=== PATIENT | male | born 1965 | race African-American/Black ===

== ENCOUNTER 2017-02-28 16:08 | Inpatient (IN) | payer OTHER ==
[2017-02-28 16:39] VITALS: BMI 30.4
--- NOTE | 2017-02-28 20:13 | HP ---
CIWA Score - CIWA Score Nausea/Vomitin-No Nausea/No Vomiting Muscle Tremors: 4-Moderate,w/Arms Extend Anxiety: 4-Mod. Anxious/Guarded Agitation: 4-Moderately Restless Paroxysmal Sweats: No Perspiration Orientation: 2-Disoriented Date<2 days Tacttile Disturbances: 0-None Auditory Disturbances: 0-None Visual Disturbances: 0-None Headache: 2-Mild CIWA-Ar Total Score: 16 Admission ROS BHS - HPI Chief Complaint: SEEKING DETOX FOR ALCOHOLISM Allergies/Adverse Reactions: Allergies Allergy/AdvReac Type Severity Reaction Status Date / Time No Known Allergies Allergy Verified 06/02/13 16:47 History of Present Illness: 52 Y.O. MALE WITH ALCOHOLISM AND COCAINE DEP ADMITTED FOR DETOX. LAST DETOX 2 MONTHS AGO. SELF REFERRED. REPORTS LONGEST CLEAN TIME 3 MONTHS. Exam Limitations: No Limitations - Ebola screening Have you traveled outside of the country in the last 21 days: No Have you had contact with anyone from an Ebola affected area: No Have you been sick,other than usual withdrawal symptoms: No Do you have a fever: No - Review of Systems Constitutional: Changes in sleep EENT: reports: No Symptoms Reported Respiratory: reports: No Symptoms reported Cardiac: reports: No Symptoms Reported GI: reports: Abdominal cramping : reports: No Symptoms Reported Musculoskeletal: reports: No Symptoms Reported Integumentary: reports: No Symptoms Reported Neuro: reports: No Symptoms reported Endocrine: reports: No Symptoms Reported Hematology: reports: No Symptoms Reported Psychiatric: reports: Anxious Other Systems: Reviewed and Negative Patient History - Patient Medical History Hx Anemia: No Hx Asthma: Yes (on albuterol inhaler) Hx Chronic Obstructive Pulmonary Disease (COPD): No Hx Cancer: No Hx Cardiac Disorders: No Hx Congestive Heart Failure: No Hx Hypertension: No Hx Hypercholesterolemia: Yes Hx Pacemaker: No HX Cerebrovascular Accident: No Hx Seizures: No Hx Dementia: No Hx Diabetes: No Hx Gastrointestinal Disorders: No Hx Liver Disease: No Hx Genitourinary Disorders: No Hx Sexually Transmitted Disorders: No Hx Renal Disease (ESRD): No Hx Thyroid Disease: No Hx Human Immunodeficiency Virus (HIV): No Hx Hepatitis C: No Hx Depression: No Hx Suicide Attempt: No Hx Schizophrenia: No Other Medical History: DENIES - Patient Surgical History Past Surgical History: Yes Hx Neurologic Surgery: No Hx Cataract Extraction: No Hx Cardiac Surgery: No Hx Lung Surgery: No Hx Breast Surgery: No Hx Breast Biopsy: No Hx Abdominal Surgery: No Hx Appendectomy: No Hx Cholecystectomy: No Hx Genitourinary Surgery: No Hx Section: No Hx Orthopedic Surgery: Yes (BUNION REMOVAL L FOOT) Other Surgical History: removal of benign cyst of neck in 2019 Anesthesia Reaction: No - PPD History Previous Implant?: Yes Documented Results: Negative w/proof Implanted On Prior [facility] Admission?: Yes Date: 06/04/13 Results: 0MM PPD to be Administered?: Yes - Smoking Cessation Smoking history: Current every day smoker Have you smoked in the past 12 months: Yes Aproximately how many cigarettes per day: 10 Cigars Per Day: 0 Hx Chewing Tobacco Use: No Initiated information on smoking cessation: Yes 'Breaking Loose' booklet given: 02/28/17 - Substance & Tx. History Hx Alcohol Use: Yes Hx Substance Use: Yes Substance Use Type: Alcohol, Cocaine Hx Substance Use Treatment: Yes ([facility]) - Substances Abused BEER Route: Oral Frequency: Daily Amount used: 8- 16OZ CANS Age of first use: 19 Date of Last Use: 02/28/17 (5 CANS) COCAINE Route: Smoking Frequency: Daily Amount used: $30 Age of first use: 19 Date of Last Use: 02/27/17 Family Disease History - Family Disease History Family Disease History: [place]: Mother (UTERINE [place] ) Admission Physical Exam [facility] - Vital Signs Vital Signs: Vital Signs - 24 hr 02/28/17 16:26 Temperature 96.0 F L Pulse Rate 84 Respiratory 18 Rate Blood Pressure 145/85 - Physical General Appearance: Yes: Appropriately Dressed, Tremorous, Anxious HEENTM: Yes: EOMI, Normocephalic, DIONI, Pharynx Normal, Other (MISSING TEETH) Respiratory: Yes: Chest Non-Tender, Lungs Clear, Normal Breath Sounds, No Respiratory Distress, No Accessory Muscle Use Neck: Yes: No masses,lesions,Nodules, Supple, Trachea in good position Breast: Yes: Breast Exam Deferred Cardiology: Yes: Regular Rhythm, Regular Rate, S1, S2 Abdominal: Yes: Normal Bowel Sounds, Non Tender, Soft Genitourinary: Yes: Within Normal Limits Back: Yes: Normal Inspection Musculoskeletal: Yes: full range of Motion, Gait Steady Extremities: Yes: Normal Range of Motion, Non-Tender, Tremors Neurological: Yes: Alert, Disoriented (TO DATE) Integumentary: Yes: Normal Color, Dry, Warm Lymphatic: Yes: Within Normal Limits - Diagnostic (1) Hypercholesterolemia Current Visit: No Status: Active (2) Alcohol dependence with uncomplicated withdrawal Current Visit: Yes Status: Acute (3) Cocaine dependence, uncomplicated Current Visit: Yes Status: Acute (4) Asthma Current Visit: Yes Status: Acute (5) Nicotine dependence Current Visit: Yes Status: Acute Cleared for Admission [facility] - Detox or Rehab [facility] Level of Care: Medically Managed Detox Regimen/Protocol: Librium [facility] Breath Alcohol Content Breath Alcohol Content: 0 Urine Drug Screen - Results Drug Screen Negative: No Urine Drug Screen Results: TRE-Cocaine
[2017-02-28] MEDS ORDERED: MAGNESIUM CITRATE 300 ML BOTTLE PO PRN (20:21)
[2017-02-28] MEDS ORDERED: MENTHOL/PHENOL 1 EACH UD MM PRN (20:21)
[2017-02-28] MEDS ORDERED: NICOTINE POLACRILEX 2 MG GUM BUC PRN (20:21)
[2017-02-28] MEDS ORDERED: MAGNESIUM HYDROX 2400MG/30ML ORAL SUSPENSION 30 ML CUP PO PRN (20:21)
[2017-02-28] MEDS ORDERED: P-EPHED 60MG/TRIPROLIDI 2.5MG TABLET PO PRN (20:21)
[2017-02-28] MEDS ORDERED: MAG HYDROX/AL HYDROX/SIMETH 30 ML UNIT-DOSE CUP PO PRN (20:21)
[2017-02-28] MEDS ORDERED: diphenhydrAMINE HCL 50 MG CAPSULE PO PRN (20:21)
[2017-02-28] MEDS ORDERED: ACETAMINOPHEN 325 MG TABLET (FP) PO PRN (20:21)
[2017-02-28] MEDS ORDERED: hydrOXYzine PAMOATE 50 MG CAPSULE (FP) PO PRN (20:21)
[2017-02-28] MEDS ORDERED: guaiFENesin/D-METHORPHAN HB 10 ML UNIT-DOSE CUPS PO PRN (20:21)
[2017-02-28] MEDS ORDERED: LOPERAMIDE HCL 2 MG CAPSULE PO PRN (20:21)
[2017-02-28] MEDS ORDERED: chlordiazePOXIDE HCL 25 MG CAPSULE PO PRN (20:21)
[2017-02-28] MEDS: chlordiazePOXIDE HCL 25 MG CAPSULE PO SCH (22:38)
[2017-02-28] MEDS: ALBUTEROL SO4 6.7 GM HFA INHALER IH SCH (22:44)
[2017-02-28] MEDS: THIAMINE HCL 100 MG TABLET (FP) PO SCH (22:44)
[2017-02-28] MEDS: NICOTINE 14 MG/24 HOURS TOPICAL PATCH TD SCH (22:46)
[2017-03-01] LABS: URINE APPEARANCE CLEAR; URINE BILIRUBIN NEGATIVE (NEGATIVE); URINE BLOOD NEGATIVE (NEGATIVE); URINE COLOR LTYELLOW; URINE GLUCOSE (UA) NEGATIVE (NEGATIVE); URINE KETONE NEGATIVE (NEGATIVE); URINE LEUK ESTERASE NEGATIVE (NEGATIVE); URINE NITRITE NEGATIVE (NEGATIVE); URINE PROTEIN NEGATIVE (NEGATIVE); URINE UROBILINOGEN NEGATIVE E.U./dl (0.2-1.0)
[2017-03-01] MEDS: ALBUTEROL SO4 6.7 GM HFA INHALER IH SCH ×7 (01:00→22:32)
[2017-03-01] MEDS: chlordiazePOXIDE HCL 25 MG CAPSULE PO SCH ×4 (06:32→22:30)
--- NOTE | 2017-03-01 09:58 | EKG ---
Test Reason : Blood Pressure : / mmHG Vent. Rate : 077 BPM Atrial Rate : 077 BPM P-R Int : 132 ms QRS Dur : 074 ms QT Int : 370 ms P-R-T Axes : 057 050 042 degrees QTc Int : 418 ms NORMAL SINUS RHYTHM NORMAL ECG NO PREVIOUS ECGS AVAILABLE Confirmed by KEVEN BAINS MD ([id number]) on 03/01/2017 9:58:17 AM Referred By: Confirmed By:KEVEN BAINS MD
[2017-03-01 10:11] LABS: MCH 28.5 pg (25.7-33.7); MEAN CELL VOLUME 86.5 fl (80-96); MEAN PLT VOLUME 7.7 fl (7.5-11.1); PLATELET COUNT 280 K/MM3 (134-434); WHITE BLOOD COUNT 4.8 K/mm3 (4.0-10.0)
[2017-03-01] MEDS: PRENATAL VITAMINS W/ FOLIC ACID TABLET (FP) PO SCH (10:29)
[2017-03-01] MEDS: NICOTINE 14 MG/24 HOURS TOPICAL PATCH TD SCH (10:30)
[2017-03-01 11:05] LABS: ALBUMIN 3.4 g/dl (3.4-5.0); ALK PHOS 142 U/L (45-117); ANION GAP 9 (8-16); BILIRUBIN,TOTAL 0.3 mg/dL (0.2-1.0); CALCIUM 8.9 mg/dL (8.5-10.1); CO2 28 mmol/L (21-32); CREATININE 1.1 mg/dL (0.7-1.3); GLUCOSE,RANDOM 99 mg/dL (74-106); SGOT/AST 18 U/L (15-37); SGPT/ALT 34 U/L (12-78); TOT PROT 7.2 g/dl (6.4-8.2)
--- NOTE | 2017-03-01 13:13 | PN ---
S CIWA - CIWA Score Nausea/Vomitin-No Nausea/No Vomiting Muscle Tremors: 3 Anxiety: 4-Mod. Anxious/Guarded Agitation: 3 Paroxysmal Sweats: 3 Orientation: 0-Oriented Tacttile Disturbances: 0-None Auditory Disturbances: 0-None Visual Disturbances: 0-None Headache: 0-None Present CIWA-Ar Total Score: 13 BHS Progress Note (SOAP) Subjective: Anxiety,tremors,sweating,interrupted sleep,restless Objective: 03/01/17 13:14 Vital Signs - 8 hr 03/01/17 03/01/17 06:24 10:00 Temperature 97.7 F 97.3 F L Pulse Rate 95 H 108 H Respiratory 18 20 Rate Blood Pressure 122/77 138/87 Laboratory Tests 02/28/17 03/01/17 03/01/17 21:26 08:00 08:00 WBC 4.8 RBC 5.75 H Hgb 16.4 Hct 49.7 H MCV 86.5 MCHC 33.0 RDW 14.0 Plt Count 280 MPV 7.7 Sodium 141 Potassium 4.4 Chloride 104 Carbon Dioxide 28 Anion Gap 9 BUN 19 H D Creatinine 1.1 D Creat Clearance w eGFR > 60 Random Glucose 99 D Calcium 8.9 Total Bilirubin 0.3 D AST 18 ALT 34 Alkaline Phosphatase 142 H Total Protein 7.2 Albumin 3.4 Urine Color Ltyellow Urine Appearance Clear Urine pH 6.0 Ur Specific [place] 1.015 Urine Protein Negative Urine Glucose (UA) Negative Urine Ketones Negative Urine Blood Negative Urine Nitrite Negative Urine Bilirubin Negative Urine Urobilinogen Negative Ur Leukocyte Esterase Negative labs noted Assessment: 03/01/17 13:15 Withdrawal sx. Plan: Continue detox
--- NOTE | 2017-03-01 15:55 | CONSULT ---
[facility] Psychiatric Consult - Data Date of interview: 03/01/17 Admission source: [facility] Identifying data: Patient is taken to office for psychiatric interview." You keep on bothering me.I need my sleep.I don't want to talk to psychiatrists." Mr Gonzales refuses to engage in conversation.Left the room.Nursing staff is made aware.
[2017-03-01] MEDS: IBUPROFEN 400 MG TABLET (FP) PO PRN (18:18)
[2017-03-01] MEDS: LIDOCAINE 5% TOPICAL PATCH TP SCH (19:58)
[2017-03-01] MEDS: ATORVASTATIN CA 20 MG TABLET (FP) PO SCH (22:30)
[2017-03-01] MEDS: LIDOCAINE PATCH REMOVAL MC SCH (22:31)
[2017-03-01] MEDS: THIAMINE HCL 100 MG TABLET (FP) PO SCH (22:32)
[2017-03-02] MEDS: ALBUTEROL SO4 6.7 GM HFA INHALER IH SCH ×7 (00:40→23:54)
[2017-03-02] MEDS: IBUPROFEN 400 MG TABLET (FP) PO PRN (01:08)
[2017-03-02] MEDS: chlordiazePOXIDE HCL 25 MG CAPSULE PO SCH ×3 (06:23→17:27)
[2017-03-02] MEDS: NICOTINE 14 MG/24 HOURS TOPICAL PATCH TD SCH (11:48)
[2017-03-02] MEDS: LIDOCAINE 5% TOPICAL PATCH TP SCH (11:48)
[2017-03-02] MEDS: PRENATAL VITAMINS W/ FOLIC ACID TABLET (FP) PO SCH (11:48)
--- NOTE | 2017-03-02 13:43 | PN ---
S CIWA - CIWA Score Nausea/Vomitin-No Nausea/No Vomiting Muscle Tremors: 3 Anxiety: 4-Mod. Anxious/Guarded Agitation: 3 Paroxysmal Sweats: 3 Orientation: 0-Oriented Tacttile Disturbances: 0-None Auditory Disturbances: 0-None Visual Disturbances: 0-None Headache: 0-None Present CIWA-Ar Total Score: 13 BHS Progress Note (SOAP) Subjective: Anxiety,tremors,sweating,interrupted sleep,restless Objective: 03/02/17 13:42 Vital Signs - 8 hr 03/02/17 03/02/17 06:46 10:00 Temperature 97.3 F L 96.9 F L Pulse Rate 84 101 H Respiratory 20 20 Rate Blood Pressure 124/74 140/89 Laboratory Tests 02/28/17 03/01/17 03/01/17 21:26 08:00 08:00 WBC 4.8 RBC 5.75 H Hgb 16.4 Hct 49.7 H MCV 86.5 MCHC 33.0 RDW 14.0 Plt Count 280 MPV 7.7 Sodium 141 Potassium 4.4 Chloride 104 Carbon Dioxide 28 Anion Gap 9 BUN 19 H D Creatinine 1.1 D Creat Clearance w eGFR > 60 Random Glucose 99 D Calcium 8.9 Total Bilirubin 0.3 D AST 18 ALT 34 Alkaline Phosphatase 142 H Total Protein 7.2 Albumin 3.4 Urine Color Ltyellow Urine Appearance Clear Urine pH 6.0 Ur Specific [place] 1.015 Urine Protein Negative Urine Glucose (UA) Negative Urine Ketones Negative Urine Blood Negative Urine Nitrite Negative Urine Bilirubin Negative Urine Urobilinogen Negative Ur Leukocyte Esterase Negative RPR Titer 03/01/17 08:00 WBC RBC Hgb Hct MCV MCHC RDW Plt Count MPV Sodium Potassium Chloride Carbon Dioxide Anion Gap BUN Creatinine Creat Clearance w eGFR Random Glucose Calcium Total Bilirubin AST ALT Alkaline Phosphatase Total Protein Albumin Urine Color Urine Appearance Urine pH Ur Specific [place] Urine Protein Urine Glucose (UA) Urine Ketones Urine Blood Urine Nitrite Urine Bilirubin Urine Urobilinogen Ur Leukocyte Esterase RPR Titer Nonreactive labs noted Assessment: 03/02/17 13:43 Withdrawal sx. Plan: Continue detox
[2017-03-02] MEDS: ATORVASTATIN CA 20 MG TABLET (FP) PO SCH (22:16)
[2017-03-02] MEDS: THIAMINE HCL 100 MG TABLET (FP) PO SCH (22:16)
[2017-03-02] MEDS: chlordiazePOXIDE 5 MG CAPSULE PO SCH (22:16)
[2017-03-02] MEDS: LIDOCAINE PATCH REMOVAL MC SCH (22:18)
[2017-03-03] MEDS: chlordiazePOXIDE 5 MG CAPSULE PO SCH ×2 (06:13→10:52)
[2017-03-03] MEDS: ALBUTEROL SO4 6.7 GM HFA INHALER IH SCH ×3 (07:46→13:52)
--- NOTE | 2017-03-03 10:48 | PN ---
BHS Progress Note (SOAP) Subjective: interrupted sleep, sweats Objective: 03/03/17 10:46 Vital Signs Temperature 97.5 F L 03/03/17 06:00 Pulse Rate 86 03/03/17 06:00 Respiratory Rate 18 03/03/17 06:00 Blood Pressure 130/84 03/03/17 06:00 O2 Sat by Pulse Oximetry (%) Laboratory Tests 02/28/17 03/01/17 03/01/17 21:26 08:00 08:00 WBC 4.8 RBC 5.75 H Hgb 16.4 Hct 49.7 H MCV 86.5 MCHC 33.0 RDW 14.0 Plt Count 280 MPV 7.7 Sodium 141 Potassium 4.4 Chloride 104 Carbon Dioxide 28 Anion Gap 9 BUN 19 H D Creatinine 1.1 D Creat Clearance w eGFR > 60 Random Glucose 99 D Calcium 8.9 Total Bilirubin 0.3 D AST 18 ALT 34 Alkaline Phosphatase 142 H Total Protein 7.2 Albumin 3.4 Urine Color Ltyellow Urine Appearance Clear Urine pH 6.0 Ur Specific [place] 1.015 Urine Protein Negative Urine Glucose (UA) Negative Urine Ketones Negative Urine Blood Negative Urine Nitrite Negative Urine Bilirubin Negative Urine Urobilinogen Negative Ur Leukocyte Esterase Negative RPR Titer 03/01/17 08:00 WBC RBC Hgb Hct MCV MCHC RDW Plt Count MPV Sodium Potassium Chloride Carbon Dioxide Anion Gap BUN Creatinine Creat Clearance w eGFR Random Glucose Calcium Total Bilirubin AST ALT Alkaline Phosphatase Total Protein Albumin Urine Color Urine Appearance Urine pH Ur Specific [place] Urine Protein Urine Glucose (UA) Urine Ketones Urine Blood Urine Nitrite Urine Bilirubin Urine Urobilinogen Ur Leukocyte Esterase RPR Titer Nonreactive pt aox3 in nad ambulating Assessment: 03/03/17 10:47 withdrawal sx;s Plan: cont. detox increase fluids d/c in am
[2017-03-03] MEDS: PRENATAL VITAMINS W/ FOLIC ACID TABLET (FP) PO SCH (10:52)
[2017-03-03] MEDS: LIDOCAINE 5% TOPICAL PATCH TP SCH (10:53)
[2017-03-03] MEDS: NICOTINE 14 MG/24 HOURS TOPICAL PATCH TD SCH (10:53)
[2017-03-03 11:03] VITALS: BP 145/82; PULSE 118; TEMP 97.9
--- NOTE | 2017-03-03 15:04 | DS ---
[facility] Detox Discharge Summary Admission Date: 02/28/17 Discharge Date: 03/03/17 - History Present History: Alcohol Dependence, Cocaine Dependence - Physical Exam Results Vital Signs: Vital Signs Temperature 97.9 F 03/03/17 10:00 Pulse Rate 118 H 03/03/17 10:00 Respiratory Rate 18 03/03/17 10:00 Blood Pressure 145/82 03/03/17 10:00 O2 Sat by Pulse Oximetry (%) - Treatment Hospital Course: Detox Protocol Followed - Medication Discharge Medications: Ambulatory Orders Albuterol Sulfate Inhaler - [Ventolin HFA Inhaler -] 1 - 2 inh IH Q4H #0 inh Atorvastatin Ca [Lipitor] 20 mg PO HS #0 tablet 06/05/13 - AMA Did Patient Leave Against Medical Advice: No (but was d/c'ed for aggressive behavior/fighting with another pt. )
[2017-03-03] MEDS ORDERED: chlordiazePOXIDE HCL 10 MG CAPSULE PO SCH (23:00)
== END 2017-03-03 12:49 | disposition home or self-care (01) | DRG 774 ==
LOC: YASAS 16:08 → Y6N 21:21
PROVIDERS: ADMIT Internal Medicine; ATTEND Internal Medicine
PROC: HZ2ZZZZ Detoxification Services for Substance Abuse Treatment (ICD-10-PCS; principal; 2017-02-28)
DX: F10.230 Alcohol dependence with withdrawal, uncomplicated (principal); F14.20 Cocaine dependence, uncomplicated; F17.210 Nicotine dependence, cigarettes, uncomplicated; F91.8 Other conduct disorders; J45.909 Unspecified asthma, uncomplicated; E78.00 Pure hypercholesterolemia, unspecified; Z59.0 Homelessness
CPT/HCPCS: 36415; 80053; 81003; 85027; 86593; 86803; 93005; 93010